=== PATIENT | female | born 1935 | race Caucasian/White ===

== ENCOUNTER 2020-09-14 15:50 | Inpatient (IN) | payer MEDICARE ==
[~2020-09-14] VITALS: Ht 162.6 cm; Wt 63.6 kg
--- NOTE | 2020-09-14 15:57 | NUR ---
[facility]HE[facility] [phone]
--- NOTE | 2020-09-14 15:58 | NUR ---
JJ SIMS [phone]
--- NOTE | 2020-09-14 16:08 | NUR ---
PT BIB CARE FLIGHT FROM [place]. PT LIVES WITH DAUGHTER. DAUGHTER CHECKED ON HER AT 0630 AND SHE WAS "FINE". 0630 WAS HER LAST KNOWN WELL TIME. DAUGHTER THEN WENT TO CHECK ON HER AT 1200 AND SHE WAS LYING PRONE ON THE GROUND. PT WAS NON RESPONSIVE TO VERBAL STIMULI. BUT WHEN EMS ARRIVED SHE WAS RESPONSIVE TO PAINFUL STIMULI. PT FOUDN TO HAVE PNEUMONIA WAS WAS GIVEN 2GRAMS ROCEPHIN AND 324 ASPIRIN RECTALLY. PT WENT TO [place] ER AND GOT A CT WHICH WAS NEGATIVE FOR A BLEED BUT SAID SHE HAD A STROKE. PT IS APHASIC, RIGHT SIDED WEAKNESS, RIGHT SIDE FACIAL DROOP (FROM PREVIOUS STROKE). ONLY NEW DEFICIT IS THE INCONPREHENSIBLE SPEECH. [place] PUT IN A SYED, THIS RN AND ACCEPTING MD ARE UNSURE TO WHY. THIS INFORMATION WAS NOT GIVEN IN REPORT. PT NORMAL BASELINE: AOX3, AMBULATORY, AND CLEER SPEECH.
[2020-09-14] MEDS ORDERED: PIPERACILLIN/TAZO/PMX 3.375GM 50 ML ONE (16:27)
[2020-09-14] MEDS ORDERED: PIPERACILLIN/TAZO/PMX 3.375GM 50 ML IV ONE (16:30)
--- NOTE | 2020-09-14 16:43 | NUR ---
PT TO CT AT THIS TIME. NEURO TELE DOC CONSULT DELAYED DUE TO TECHNICAL DIFFICULTIES. IT ARRIVED TO WORK ON COMPUTER
[2020-09-14] MEDS ORDERED: OMNIPAQUE 350 MG/ML, 100ML BOTTLE ONE (17:13)
--- NOTE | 2020-09-14 17:28 | NUR ---
neuro exam completed at bedside
[2020-09-14 17:38] LABS: INTERNATIONAL NORMALIZED RATIO 1.04 (0.93-1.1)
--- NOTE | 2020-09-14 18:01 | NUR ---
PT GIVE PERMISSION FOR FAMILY MEMBERS TO BE UPDATED ON HER STATUS
--- NOTE | 2020-09-14 21:59 | NUR ---
PT NON VERBAL WITH RIGHT SIDE WEAKNESS. PT HAS SYED IN PLACE PRIOR TO ER. PT HAS IV IN L AC 20. REPORT GIVEN TO FLOOR RN
[2020-09-14 22:14] VITALS: BP 136/68
[2020-09-15 01:04] VITALS: BP 120/70
[2020-09-15 02:03] VITALS: BP 122/69
[2020-09-15] MEDS ORDERED: ENALAPRILAT 1.25 MG/ML, 2ML IVPush PRN (04:30)
[2020-09-15] MEDS ORDERED: DOCUSATE 100 MG CAPSULE PO PRN (04:30)
[2020-09-15] MEDS ORDERED: METHOCARBAMOL 500 MG TABLET PO PRN (04:30)
[2020-09-15] MEDS ORDERED: ACETAMINOPHEN 325 MG TABLET PO PRN (04:30)
[2020-09-15] MEDS ORDERED: ONDANSETRON 2MG/ML, 2ML IVPush PRN (04:30)
[2020-09-15] MEDS ORDERED: TEMAZEPAM 15 MG CAPSULE PO PRN (04:30)
[2020-09-15] MEDS: PIPERACILLIN/TAZO/PMX 3.375GM 50 ML IV SCH ×3 (05:15→22:52)
[2020-09-15] MEDS: LACTATED RINGERS 1,000 ML IV SCH (05:16)
[2020-09-15 07:48] VITALS: BP 112/74
[2020-09-15 08:46] LABS: CHOL/HDL RATIO 2.8; LDL/HDL RATIO 1.5 (0.5-3.0)
[2020-09-15] MEDS: CLOPIDOGREL 75 MG TABLET PO SCH (09:00)
[2020-09-15] MEDS: FAMOTIDINE 20 MG/2 ML IVPush SCH ×2 (14:13→20:33)
[2020-09-15] MEDS: TIOTROPIUM BROMIDE 18 MCG/INH INH SCH (14:13)
[2020-09-15 14:22] VITALS: BP 143/89
[2020-09-15] MEDS: HEPARIN 5,000 UNITS/ML, 1ML SQ SCH (18:06)
[2020-09-15 19:07] VITALS: BP 143/69
[2020-09-16 01:19] VITALS: BP 133/72
[2020-09-16] MEDS: HEPARIN 5,000 UNITS/ML, 1ML SQ SCH ×3 (02:15→17:39)
[2020-09-16] MEDS: LACTATED RINGERS 1,000 ML IV SCH ×2 (04:42→20:48)
[2020-09-16 05:14] LABS: MEAN PLATELET VOLUME 8.2 fL (7.4-10.4); PLATELET COUNT 244 x10^3/uL (130-400); RED BLOOD COUNT 3.68 x10^6/uL (3.82-5.3); RED CELL DISTRIBUTION WIDTH 16.7 % (9.6-15.2)
[2020-09-16 05:15] LABS: BASOPHILS % (AUTO) 1 % (0-1); EOSINOPHILS % (AUTO) 5 % (1-7); LYMPHOCYTES % (AUTO) 44 % (22-44); MONOCYTES % (AUTO) 9 % (2-9); NEUTROPHILS % (AUTO) 42 % (42-75)
[2020-09-16 05:27] LABS: ALBUMIN 3.1 g/dL (3.4-5.0); ANION GAP 5 mmol/L (5-15); CHLORIDE 111 mmol/L (98-107)
[2020-09-16 05:28] LABS: MD NO
[2020-09-16 05:38] LABS: ALANINE AMINOTRANSFERASE 12 U/L (12-78); ALKALINE PHOSPHATASE 105 U/L (45-117); CREATININE 1.04 mg/dL (0.55-1.02); TOTAL PROTEIN 6.3 g/dL (6.4-8.2)
[2020-09-16] MEDS: PIPERACILLIN/TAZO/PMX 3.375GM 50 ML IV SCH ×3 (05:55→21:48)
[2020-09-16 07:37] VITALS: BP 132/78
[2020-09-16] MEDS: TIOTROPIUM BROMIDE 18 MCG/INH INH SCH (09:00)
[2020-09-16] MEDS: CLOPIDOGREL 75 MG TABLET PO SCH (09:00)
[2020-09-16] MEDS: FAMOTIDINE 20 MG/2 ML IVPush SCH ×2 (09:41→20:49)
[2020-09-16 13:54] VITALS: BP 146/73
[2020-09-16 20:13] VITALS: BP 136/68
[2020-09-17] MEDS: HEPARIN 5,000 UNITS/ML, 1ML SQ SCH ×3 (02:22→17:02)
[2020-09-17 02:29] VITALS: BP 132/65
[2020-09-17 06:08] LABS: BASOPHILS % (AUTO) 1 % (0-1); EOSINOPHILS % (AUTO) 5 % (1-7); LYMPHOCYTES % (AUTO) 30 % (22-44); MEAN CORPUSCULAR HEMOGLOBIN 27.1 pg (27.0-34.8); MEAN CORPUSCULAR HGB CONC 32.7 g/dL (32.4-35.8); MONOCYTES % (AUTO) 8 % (2-9); NEUTROPHILS % (AUTO) 56 % (42-75); PLATELET COUNT 227 x10^3/uL (130-400); RED BLOOD COUNT 3.59 x10^6/uL (3.82-5.3); RED CELL DISTRIBUTION WIDTH 16.4 % (9.6-15.2)
[2020-09-17 06:14] LABS: ANION GAP 10 mmol/L (5-15); CALCIUM 8.6 mg/dL (8.5-10.1); CHLORIDE 109 mmol/L (98-107)
[2020-09-17] MEDS: PIPERACILLIN/TAZO/PMX 3.375GM 50 ML IV SCH ×3 (06:16→22:02)
[2020-09-17 06:17] LABS: CREATININE 0.87 mg/dL (0.55-1.02)
[2020-09-17 06:24] LABS: MD NO
[2020-09-17] MEDS: CLOPIDOGREL 75 MG TABLET PO SCH (09:00)
[2020-09-17] MEDS: TIOTROPIUM BROMIDE 18 MCG/INH INH SCH (09:00)
[2020-09-17 09:30] VITALS: BP 133/52
[2020-09-17] MEDS: LACTATED RINGERS 1,000 ML IV SCH (12:30)
[2020-09-17 12:45] VITALS: BP 140/75
[2020-09-17 18:52] VITALS: BP 149/77
[2020-09-17] MEDS: FAMOTIDINE 20 MG/2 ML IVPush SCH (20:38)
[2020-09-18 01:00] VITALS: BP 151/77
[2020-09-18] MEDS: HEPARIN 5,000 UNITS/ML, 1ML SQ SCH ×3 (01:30→11:34)
[2020-09-18 04:54] LABS: BASOPHILS % (AUTO) 1 % (0-1); EOSINOPHILS % (AUTO) 4 % (1-7); LYMPHOCYTES % (AUTO) 32 % (22-44); MEAN CORPUSCULAR HEMOGLOBIN 26.9 pg (27.0-34.8); MEAN CORPUSCULAR HGB CONC 32.4 g/dL (32.4-35.8); MEAN PLATELET VOLUME 8.3 fL (7.4-10.4); MONOCYTES % (AUTO) 8 % (2-9); NEUTROPHILS % (AUTO) 55 % (42-75); PLATELET COUNT 246 x10^3/uL (130-400); RED BLOOD COUNT 3.85 x10^6/uL (3.82-5.3); RED CELL DISTRIBUTION WIDTH 16.3 % (9.6-15.2)
[2020-09-18 05:03] LABS: ANION GAP 10 mmol/L (5-15); CALCIUM 8.6 mg/dL (8.5-10.1); CHLORIDE 109 mmol/L (98-107)
[2020-09-18 05:05] LABS: CREATININE 0.86 mg/dL (0.55-1.02)
[2020-09-18 05:11] LABS: MD NO
[2020-09-18] MEDS: PIPERACILLIN/TAZO/PMX 3.375GM 50 ML IV SCH ×3 (05:36→22:08)
[2020-09-18] MEDS: LACTATED RINGERS 1,000 ML IV SCH (05:36)
[2020-09-18 06:41] VITALS: BP 151/71
[2020-09-18] MEDS: TIOTROPIUM BROMIDE 18 MCG/INH INH SCH (09:00)
[2020-09-18] MEDS: CLOPIDOGREL 75 MG TABLET PO SCH (09:00)
[2020-09-18] MEDS ORDERED: CEFAZOLIN 1,000 MG ONE (09:04)
[2020-09-18] MEDS ORDERED: PROPOFOL 50 ML ONE (09:19)
[2020-09-18] MEDS ORDERED: OXYcodone 5 MG/5 ML ORAL.SOL UDC PO PRN (10:00)
[2020-09-18] MEDS ORDERED: FENTANYL PF 100 MCG/2ML IV PRN (10:00)
[2020-09-18] MEDS ORDERED: ACETAMINOPHEN 325 MG TABLET PO PRN (10:00)
[2020-09-18] MEDS ORDERED: ONDANSETRON 2MG/ML, 2ML IVPush PRN (10:00)
[2020-09-18 12:57] VITALS: BP 151/73
[2020-09-18] MEDS: KETOROLAC 30 MG/1 ML IV PRN (13:14)
[2020-09-18 19:08] VITALS: BP 163/71
[2020-09-18] MEDS: FAMOTIDINE 20 MG/2 ML IVPush SCH (20:11)
[2020-09-19 01:27] VITALS: BP 167/67
[2020-09-19] MEDS: HEPARIN 5,000 UNITS/ML, 1ML SQ SCH ×3 (01:30→20:35)
[2020-09-19] MEDS: LACTATED RINGERS 1,000 ML IV SCH (03:37)
[2020-09-19 05:03] LABS: BASOPHILS % (AUTO) 1 % (0-1); EOSINOPHILS % (AUTO) 4 % (1-7); LYMPHOCYTES % (AUTO) 36 % (22-44); MEAN CORPUSCULAR HGB CONC 32.4 g/dL (32.4-35.8); MEAN PLATELET VOLUME 8.4 fL (7.4-10.4); MONOCYTES % (AUTO) 9 % (2-9); NEUTROPHILS % (AUTO) 50 % (42-75); PLATELET COUNT 242 x10^3/uL (130-400); RED CELL DISTRIBUTION WIDTH 16.2 % (9.6-15.2)
[2020-09-19 05:10] LABS: ANION GAP 9 mmol/L (5-15); CALCIUM 8.9 mg/dL (8.5-10.1); CHLORIDE 108 mmol/L (98-107); CREATININE 0.84 mg/dL (0.55-1.02)
[2020-09-19 05:13] LABS: MD NO
[2020-09-19] MEDS: PIPERACILLIN/TAZO/PMX 3.375GM 50 ML IV SCH ×3 (06:09→22:12)
[2020-09-19] MEDS ORDERED: DEXTROSE 50%, 50ML SYRINGE IVPush ONE (08:30)
[2020-09-19 08:50] VITALS: BP 194/99
[2020-09-19] MEDS: TIOTROPIUM BROMIDE 18 MCG/INH INH SCH (09:56)
[2020-09-19] MEDS: CLOPIDOGREL 75 MG TABLET PO SCH (12:16)
[2020-09-19 14:32] VITALS: BP 182/88
[2020-09-19 19:03] VITALS: BP 158/75
[2020-09-19] MEDS: FAMOTIDINE 20 MG/2 ML IVPush SCH (20:35)
[2020-09-19] MEDS: KETOROLAC 30 MG/1 ML IV PRN (20:47)
[2020-09-20 02:11] VITALS: BP 127/62
[2020-09-20] MEDS: LACTATED RINGERS 1,000 ML IV SCH ×2 (02:30→18:50)
[2020-09-20] MEDS: HEPARIN 5,000 UNITS/ML, 1ML SQ SCH (05:12)
[2020-09-20] MEDS: PIPERACILLIN/TAZO/PMX 3.375GM 50 ML IV SCH ×3 (06:32→22:15)
[2020-09-20] MEDS: morphine SULFATE 10 MG/ML, 1ML IVPush PRN (06:39)
[2020-09-20] MEDS: CLOPIDOGREL 75 MG TABLET PO SCH (08:46)
[2020-09-20] MEDS: TIOTROPIUM BROMIDE 18 MCG/INH INH SCH (09:00)
[2020-09-20] MEDS: APIXABAN 2.5 MG TABLET PO SCH ×2 (14:04→22:08)
[2020-09-20] MEDS: FAMOTIDINE 20 MG/2 ML IVPush SCH (22:08)
[2020-09-21] MEDS: PIPERACILLIN/TAZO/PMX 3.375GM 50 ML IV SCH (05:49)
[2020-09-21 06:36] VITALS: BP 112/63
[2020-09-21] MEDS: LACTATED RINGERS 1,000 ML IV SCH (07:06)
[2020-09-21 08:47] LABS: BASOPHILS % (AUTO) 1 % (0-1); EOSINOPHILS % (AUTO) 5 % (1-7); LYMPHOCYTES % (AUTO) 36 % (22-44); MEAN CORPUSCULAR HEMOGLOBIN 27.3 pg (27.0-34.8); MEAN CORPUSCULAR HGB CONC 32.6 g/dL (32.4-35.8); MEAN PLATELET VOLUME 8.3 fL (7.4-10.4); MONOCYTES % (AUTO) 10 % (2-9); NEUTROPHILS % (AUTO) 49 % (42-75); PLATELET COUNT 227 x10^3/uL (130-400); RED CELL DISTRIBUTION WIDTH 17.3 % (9.6-15.2)
[2020-09-21 08:49] LABS: MD NO
[2020-09-21 08:56] LABS: ANION GAP 3 mmol/L (5-15); CALCIUM 8.6 mg/dL (8.5-10.1); CHLORIDE 109 mmol/L (98-107); CREATININE 0.84 mg/dL (0.55-1.02)
[2020-09-21] MEDS ORDERED: FUROSEMIDE 20 MG/2 ML IV ONE (09:00)
[2020-09-21] MEDS: TIOTROPIUM BROMIDE 18 MCG/INH INH SCH (09:20)
[2020-09-21] MEDS: APIXABAN 2.5 MG TABLET PO SCH ×2 (11:25→21:15)
[2020-09-21] MEDS: morphine SULFATE 10 MG/ML, 1ML IVPush PRN (11:51)
[2020-09-21 12:06] VITALS: BP 136/71
[2020-09-21 19:00] VITALS: BP 150/76
[2020-09-21] MEDS: FAMOTIDINE 20 MG/2 ML IVPush SCH (21:15)
[2020-09-22 02:24] VITALS: BP 147/76
[2020-09-22 07:21] VITALS: BP 145/77
[2020-09-22] MEDS: TIOTROPIUM BROMIDE 18 MCG/INH INH SCH (07:51)
[2020-09-22] MEDS: APIXABAN 2.5 MG TABLET PO SCH ×2 (09:59→21:00)
[2020-09-22 13:09] VITALS: BP 147/79
[2020-09-22] MEDS ORDERED: TEMA15CA6 PO (18:19)
[2020-09-22] MEDS ORDERED: APIX2.5T PO (18:19)
[2020-09-22] MEDS ORDERED: TIOT18CA INH (18:19)
[2020-09-22] MEDS ORDERED: METH500T7 PO (18:19)
[2020-09-22] MEDS ORDERED: ATOR40TA78 PO (18:20)
[2020-09-22 18:45] VITALS: BP 151/84
[2020-09-22] MEDS: FAMOTIDINE 20 MG/2 ML IVPush SCH (21:00)
[2020-09-22] MEDS ORDERED: ATORVASTATIN 40 MG TABLET PO SCH (21:00)
[2020-09-23 00:22] VITALS: BP 161/76
[2020-09-23 08:12] VITALS: BP 134/68
[2020-09-23] MEDS: TIOTROPIUM BROMIDE 18 MCG/INH INH SCH (10:10)
[2020-09-23] MEDS: APIXABAN 2.5 MG TABLET PO SCH (10:28)
[2020-09-23 13:28] VITALS: BP 121/76
[2020-09-23] MEDS ORDERED: FLU VACC QS2020-21(6MOS UP)/PF 60MCG/0.5 ML SYR IM ONE (17:30)
[2020-09-23 19:02] VITALS: BP 119/76
== END 2020-09-23 23:41 | DRG 64 ==
LOC: ED 17:53 → EDIP 18:06 → 4WST 22:02
PROVIDERS: ADMIT Internal Medicine; ATTEND Internal Medicine
PROC: 0DH63UZ Insertion of Feeding Device into Stomach, Percutaneous Approach (ICD-10-PCS; principal; 2020-09-18 09:00)
DX: I63.512 Cerebral infarction due to unspecified occlusion or stenosis of left middle cerebral artery (principal); J18.9 Pneumonia, unspecified organism; J44.0 Chronic obstructive pulmonary disease with (acute) lower respiratory infection; D68.69 Other thrombophilia; I69.351 Hemiplegia and hemiparesis following cerebral infarction affecting right dominant side; J81.1 Chronic pulmonary edema; D64.9 Anemia, unspecified; E03.9 Hypothyroidism, unspecified; E78.5 Hyperlipidemia, unspecified; E87.70 Fluid overload, unspecified; I10 Essential (primary) hypertension; I48.0 Paroxysmal atrial fibrillation; K44.9 Diaphragmatic hernia without obstruction or gangrene; D63.8 Anemia in other chronic diseases classified elsewhere; G31.9 Degenerative disease of nervous system, unspecified; R09.02 Hypoxemia; R13.12 Dysphagia, oropharyngeal phase; R63.3 Feeding difficulties; Z79.82 Long term (current) use of aspirin; Z79.899 Other long term (current) drug therapy; Z82.3 Family history of stroke; Z87.01 Personal history of pneumonia (recurrent); Z87.891 Personal history of nicotine dependence; Z91.81 History of falling; Z99.81 Dependence on supplemental oxygen; Z20.828 Contact with and (suspected) exposure to other viral communicable diseases
CPT/HCPCS: 36415; 70450; 70496; 70498; 70551; 71045; 74230; 80048; 80053; 80061; 82962; 84443; 85025; 85610; 85730; 87635; 90686; 93005; 93306; 94640; 96365; 99285; B4087; G0378; J0690; J1644; J1885; J2543; J2704; Q9967; 92523-GN; J1940; J2270; J7120